=== PATIENT | female | born 1990 | race Caucasian/White ===

== ENCOUNTER 2017-02-19 10:45 | Emergency (ER) | payer BC ==
[~2017-02-19] VITALS: Ht 167.6 cm; Wt 62.4 kg
[2017-02-19 10:48] VITALS: Ht 167.6 cm; Wt 62.4 kg
[2017-02-19] MEDS ORDERED: KETOROLAC 60 MG INJ IM STA (11:33)
--- NOTE | 2017-02-19 12:15 | RADRPT ---
PROCEDURE: XR Lumbar Spine. CLINICAL INDICATION: Low back pain. TECHNIQUE: Three views of the lumbar spine are available for review COMPARISON: None available FINDINGS: There is maintenance of normal lumbar lordosis. Alignment is intact. No acute fracture or disloca tion is seen. The vertebral body heights and disc spaces are preserved. IMPRESSION: 1. No acute fracture or subluxation. RPTAT: HH .Kiki Wylie MD, Date Time Electronically viewed and signed by .Kiki Wylie MD, on 02/19/2017 12:14 .N/
[2017-02-19] MEDS ORDERED: IBUP-1542 PO (12:35)
[2017-02-19] MEDS ORDERED: PRED20TA PO (12:35)
[2017-02-19] MEDS ORDERED: ORPH100T PO (12:36)
--- NOTE | 2017-02-19 12:48 | ERD ---
ER Documentation Chief Complaint Chief Complaint lower back pain today HPI This is a 26-year-old female that presents to the ER complaining of lower back pain that started this morning when she bent down while taking a shower. Patient states that pain is sharp in quality it is nonradiating. Patient took naproxen she put on a back brace, and put on a warm pad on her back which has been alleviating pain a little bit, however pain is still very severe. Patient has had back problems over the last 2 years and states that this started happening after her last . Patient denies any back trauma. She denies any urinary bowel incontinence. He denies any saddle like anesthesia. She does not have any fevers or chills. She denies any urinary frequency or dysuria. ROS 12 point review of systems was done, all negative except per HPI. Medications Home Meds Active Scripts Orphenadrine Citrate (Norflex) 100 Mg Tablet.sa, 100 MG PO BID for 7 Days, TAB.SA Prov:EYAD DRAPER 02/19/17 Prednisone* (Prednisone*) 20 Mg Tab, 40 MG PO DAILY for 4 Days, TAB Prov:EYAD DRAPER 02/19/17 Ibuprofen* (Motrin*) 600 Mg Tab, 600 MG PO Q6, #30 TAB Prov:EYAD DRAPER 02/19/17 Allergies Allergies: Coded Allergies: No Known Allergy (Verified Allergy, Unknown, 03/18/08) PMhx/Soc History of Surgery: Yes ( and mouth x2) Anesthesia Reaction: No Hx Neurological Disorder: No Hx Respiratory Disorders: No Hx Cardiac Disorders: No Hx Psychiatric Problems: No Hx Miscellaneous Medical Probl: No Hx Alcohol Use: No Hx Substance Use: No Hx Tobacco Use: No Physical Exam Vitals Vital Signs Date Time Temp Pulse Resp B/P Pulse Ox O2 Delivery O2 Flow Rate FiO2 02/19/17 10:48 97.6 66 18 124/85 99 Physical Exam GENERAL: The patient is well developed and appropriate for usual state of health , in no apparent distress. NECK: C-spine is soft and supple. There is no cervical lymphadenopathy. CHEST: Clear to auscultation bilaterally. There are no rales, wheezes or rhonchi. HEART: Regular rate and rhythm. No murmurs, clicks, rubs or gallops. ABDOMEN: Soft, nontender and nondistended. Good bowel sounds. No rebound or guarding. No gross peritonitis. No gross organomegaly or masses. No Black sign or McBurney point tenderness. No pulsatile abdominal mass. BACK: No midline or flank tenderness. Tender to palpation from L3-L5. Tense paraspinal muscles. Negative leg raise test. No step- offs. EXTREMITIES: Equal pulses bilaterally. There is no peripheral clubbing, cyanosis or edema. No focal swelling or erythema. Full range of motion. Grossly neurovascularly intact. NEURO: Alert and oriented. Cranial nerves II through XII are intact. Motor strength in all 4 extremities with 5/5 strength. Sensation grossly intact. Normal speech and gait. SKIN: There is no apparent rash or petechia. The skin is warm and dry. Results 24 hrs Current Medications Medications (Trade) Dose Ordered Sig/Ana Luisa Route PRN Reason Start Time Stop Time Status Last Admin Dose Admin Ketorolac Tromethamine (Toradol) 60 mg ONCE STAT IM 02/19/17 11:33 02/19/17 11:34 DC 02/19/17 11:44 [place] [id number] Radiology Main Line: [phone] DIAGNOSTIC IMAGING REPORT Patient: SADIA GOULD : 1990 Age: 26 Sex: F MR #: [id number] DOS: 02/19/17 0000 Ordering MD: EYAD DRAPER PA-C Location: [facility] Room/Bed: PROCEDURE: XR Lumbar Spine. CLINICAL INDICATION: Low back pain. TECHNIQUE: Three views of the lumbar spine are available for review COMPARISON: None available FINDINGS: There is maintenance of normal lumbar lordosis. Alignment is intact. No acute fracture or dislocation is seen. The vertebral body heights and disc spaces are preserved. IMPRESSION: 1. No acute fracture or subluxation. RPTAT: HH .Kiki Wylie MD, Date Time Electronically viewed and signed by .Kiki Wylie MD, MD on 02/19/2017 12: 14 .N/ CC: EYAD DRAPER Procedures/MDM Differential Diagnosis includes but is not limited to back strain, vertebral fracture, epidural abscess, cauda equina, herniated disc, AAA rupture, kidney stones, UTI, pyelonephritis. This is a 26-year-old female that presents to the ER with lower back pain which she has had intermittently over the last 2 years. No history of new trauma, suspicion for fracture or dislocation is low. Patient is afebrile and well-appearing suspicion for discitis, epidural abscess is low. Patient has full and nonpainful range of motion of bilateral lower extremities and is neurovascularly intact. She did not will be sent home with ibuprofen, Norflex, short course of steroids. She should follow-up with her primary care doctor within 1-2 days or return to ER sooner if symptoms worsen. My medical decision making was shared with the patient, she understands and agrees with plan. Departure Diagnosis: Primary Impression: Back pain Condition: Stable Patient Instructions: Back Pain (Acute Or Chronic) Referrals: YON ROLDAN MD (PCP) Additional Instructions: Call your primary care doctor TOMORROW for an appointment during the next 1-2 days.See the doctor sooner or return here if your condition worsens before your appointment time. EYAD DRAPER Feb 19, 2017 12:48
== END 2017-02-19 12:51 | disposition home or self-care (01) ==
LOC: FTE 10:45
DX: M54.5 Low back pain (principal)
CPT/HCPCS: 72100; 96372; 99284; J1885